=== PATIENT | male | born 1945 | race Caucasian/White ===

== ENCOUNTER 2016-12-03 01:18 | Day surgery (SDC) | payer MEDICARE ==
[~2016-12-03] VITALS: Ht 177.8 cm; Wt 160.7 kg
[2016-12-03] VITALS (14 sets, daily range): BP systolic 105–128; BP diastolic 57–90; PULSE 59–61; RESP 10–18; O2SAT 93–99
[~2016-12-03 01:18] MED LIST: AMIO200T PO; ASPI-973 PO; CARV3.122 PO; EZET10TA PO; FUR20 PO; HYDR-4003 PO; LEVO137T2 PO; LEVO750T9 PO; NYST1POW23 MC; POLY17PO6 PO; SACU1TAB PO; SERT25TA6 PO; TAMS0.4C29 PO; WARF2.5T82 PO
[2016-12-03] MEDS ORDERED: Ondansetron 2 mg/mL 2 mL Inj ONE (01:19)
[2016-12-03] MEDS ORDERED: fentaNYL-PF 50 mCg/mL 2 mL Inj ONE (01:19)
[2016-12-03] MEDS ORDERED: Phenylephrine/NS 100 mCg/mL 10 mL Syringe IVPUSH ONE (01:19)
[2016-12-03] MEDS ORDERED: EPHEDrine/NS 5 mg/mL 5 mL Syringe ONE (01:19)
[2016-12-03] MEDS ORDERED: Ketamine 10 mg/mL 20 mL Inj ONE (01:19)
[2016-12-03] MEDS ORDERED: Propofol 10,000 mCg/mL 20 mL Inj ONE (01:19)
[2016-12-03] MEDS ORDERED: Lactated Ringer's 1,000 ML IV SCH (05:00)
[2016-12-03] MEDS ORDERED: Vancomycin Inj 1,000 MG in IV Premix 1 EACH IV ONE (06:00)
[2016-12-03 06:39] LABS: EOSINOPHILS % (AUTO) 4.4 % (0-5); MONOCYTES % (AUTO) 7.9 % (4-12); Mean Corpuscular Hemoglobin 31.4 pg (27.0-35.0); Mean Corpuscular Volume 95.7 fL (81-100); NEUTROPHILS % (AUTO) 65.4 % (40-74); Platelet Count 220 bil/L (150-400)
[2016-12-03 07:05] LABS: INR 1.97 ratio
[2016-12-03] MEDS ORDERED: ACET500C49 PO (07:17)
[2016-12-03] MEDS ORDERED: ALBU18HF INH (07:17)
[2016-12-03] MEDS ORDERED: 0.9% Sodium Chloride 250 ML ONE (07:50)
[2016-12-03] MEDS ORDERED: Heparin 10,000 Unit/1,000 mL NS Premix IV ONE (07:50)
[2016-12-03] MEDS ORDERED: Bupivacaine-MPF 0.5% 30 mL Inj ONE (07:50)
[2016-12-03] MEDS ORDERED: Vancomycin 1,000 mg Inj ONE (07:51)
--- NOTE | 2016-12-03 07:51 | PCM.HPANE ---
Patient Data Surgeon Admitting Provider: Attending Provider:Isaiah Gilman MD Primary Care Physician:Yesica Randhawa MD Other Provider:Jony Gilliam Anesthesia Reason for Visit Ischemic Cardiomyopathy Ht/WT & BMI Height (Feet): 5 Height (Inches): 10.00 Weight (Kilograms): 163.300 Body Mass Index 51.54 Allergies Coded Allergies: simvastatin (Verified Allergy, Intermediate, Restlessness, 12/03/16) meloxicam (Verified Allergy, Unknown, 12/03/16) muscle aches Past Anesthesia History Anesthesia History: Denies:: Anesthesia Reactions Diabetes History Hx Diabetes?: No (pre-diabetic) MRSA MRSA: No Medications Blood Thinner: Coumadin Hypertension Medication: Yes Home Meds Incl Beta Cailin: Yes Date Beta Cailin Taken: Dec 03, 2016 Time Beta Cailin Taken: 06:00 Previous Beta Cailin Dose >24: Previous Dose <24 Hours Reported Medications Albuterol Sulfate (Ventolin HFA Inhaler)200 Puff/18 Gm Inhaler1 Puff INH Q4 PRN For Wheezing #1 INHALER Ref 0 12/03/16 Acetaminophen 500 Mg Capsule1,000 Mg PO Q4-6HRS/PRN 12/03/16 Nystatin 1 Each Powder.ea.1 Each MC BID PRN PRN 12/02/16 Polyethylene Glycol 3350 (Miralax)17 Gm Powd.pack17 Gm PO DAILY 12/02/16 Warfarin Sodium 2.5 Mg Tablet1.25 Mg PO 2xweekly 30 Days Ref 0 /TH12/02/16 Warfarin Sodium 2.5 Mg Tablet2.5 Mg PO 5xweekly 30 Days Ref 0 MON//TUE/SAT/SUN 12/02/16 Carvedilol 3.125 Mg Tablet3.125 Mg PO BID 03/13/16 Furosemide 20 Mg Tab1-3 Tab PO DAILY 03/13/16 Sacubitril/Valsartan (Entresto 24 mg-26 mg Tablet)24 Mg-26 Mg Tablet0.5 Tab PO BID 03/13/16 Amiodarone 200 Mg Bmssrd393 Mg PO HS Ref 0 01/01/16 Aspirin 81 Mg Pljtgt96 Mg PO DAILY Ref 0 12/24/15 Hydrocodone-Acetaminophen 5-325 mg 1 Each Tablet1 Tab PO Q6H PRN For Pain #60 12/24/15 Ezetimibe (Zetia)10 Mg Jxvpbk89 Mg PO DAILY 30 Days Ref 0 12/16/15 Tamsulosin ER 0.4 Mg Cap.er.24h0.4 Mg PO HS Ref 0 12/16/15 Sertraline HCl (Sertraline)25 Mg Jafvet08 Mg PO HS 30 Days Ref 0 12/16/15 Levothyroxine 137 Mcg Qthltt157 Mcg PO DAILY Ref 0 12/16/15 Discontinued Reported Medications Losartan Potassium 25 Mg Fcjomg94 Mg PO HS 03/13/16 Warfarin Sodium 5 Mg Tablet2.5 Mg PO / 30 Days Ref 0 03/13/16 Warfarin Sodium 5 Mg Tablet5 Mg PO Sun/Tue/Tue/Tue/Sat Ref 0 01/01/16 Neomycin/Polymyxin B Sulf/Hc (Bxddtqdv-Srytdzbzo-Ir Ear Soln)10 Ml Solution3 Gtt BOTH_EARS BID PRN prn 12/16/15 Discontinued Scripts Levofloxacin (Levaquin)750 Mg Uieqza552 Mg PO DAILY 10 Days Prov:Jose Francisco Vicente DO 03/16/16 Metronidazole (Flagyl)500 Mg Swuozu967 Mg PO Q8 10 Days Prov:Jose Francisco Vicente DO 03/16/16 History History of ENT Problems?: Yes HEENT History: Positive for:: Cataracts (monitored) Sinus Problem (OCCASIONALLY) Denies:: Dysphagia Denture Type: None Teeth Condition: Within Normal Limits Hx of Heart Problems?: Yes Cardiovascular History: Positive for:: Cardiac Surgery (STENT PLACED 2002, cardioversion this year) Chest Pain Congestive Heart Failure Edema Heart Murmur Hypertension Irregular Heartbeat (AFIB AFLUTTER- was cardioverted 12/2015) Valvular Heart Disease Denies:: Pacemaker Thrombophlebitis Other Cardiac History: cardiomyopathy with EF 30%-35% Other History/Comments Mild-mod Hx of Respiratory Problem?: Yes Respiratory History: Positive for:: Dyspnea (with exertion) Denies:: Asthma COPD Chest Surgery Emphysema Hemoptysis Oxygen Administration Pneumonia Pulmonary Embolism Tuberculosis Use of C-PAP Machine Hx Neurologic Problems?: Yes Neurological History: Positive for:: Dizziness Denies:: Alzheimer's Disease CVA Dementia Headaches Parkinson's Disease Seizures Hx of GI Problems?: Yes Gastrointestinal History: Positive for:: Gastroesphageal Reflux Other History/Comment Rare GERD Hx of Problems?: Yes Genitourinary History: Positive for:: Urinary Tract Infection Denies:: HX of Hemodialysis Kidney Stones HX of Peritoneal Dialysis: No Male Hx: Positive for:: Prostate Problems Denies:: Scrotal Mass Testicular Surgery Hx Musculoskeletal Problems?: Yes Musculoskeletal History: Positive for:: Back Injury (LUMBAR BACK PAIN) Denies:: Joint Replacement Musculoskeletal Trauma Other History/Comment Chronic Hip pain Hx of Psycho/Social Problems?: No Psycho Social History: Denies:: Anxiety Bipolar Disorder Hx Depression Suicide Attempt Hx Surgeries?: No (STENT PLACEMENT, TONSILLECTOMY) Hx Any Other Health Problems?: Yes Other History: Positive for:: Hospitalization (cardioversion, heart stent, surgery) Thyroid Disease (hypothyroid) Denies:: Cancer History Blood Transfusions: Positive for:: Accept Blood Products? Denies:: Blood Transfuse Reaction Blood Transfusions Hx Diabetes: No (pre-diabetic) Hx Alcohol Use: NoHx Substance Use: No Smoking Status: Current Every Day Smoker Have You Smoked inLast 12 mo: No Stop/Bang Treated for Sleep Apnea?: Yes Do You Have a CPAP Machine?: No SHANE Category 2: Yes Risk Assessment Category Category 1A: Patient has history of documented sleep apnea, and HAS NOT received any narcotic, sedative or anesthesia administration during this stay. Category 1B: Patient has history of documented sleep apnea, and HAS received any narcotic , sedative or anesthesia administration during this stay Category 2: Patient has SUSPECTED Obstructive Sleep Apnea, and HAS received any narcotic , sedative or anesthesia administration during this stay. Category 3: Patient has SUSPECTED Obstructive Sleep Apnea and HAS NOT received narcotic, sedative or anesthesia administration during this stay. Category 4: Outpatient in Procedural Areas with known sleep apnea or who screen positive for High Risk via the STOP/BANG questionnaire. Exam Exam Vital Signs Vital Signs Date Time Temp Pulse Resp B/P Pulse Ox O2 Delivery O2 Flow Rate FiO2 12/03/16 06:47 36.6 59 10 112/73 95 Room Air General Appearance: Alert, Oriented X3, Cooperative HEENT/AIRWAY: MP 2 Lungs: Crackles Heart: Normal S1, Normal S2, Murmur Additional Information Crackles at bilateral bases, improve with deep breathing Systolic murmur of Meds/Labs/Diagnostics Labs Test 12/03/16 06:20 White Blood Count 4.8th/mm3 (3.8-10.1) Red Blood Count 4.46mil/mm3 (4.40-5.80) Hemoglobin 14.0g/dL (13.8-17.2) Hematocrit 42.7% (41.0-50.0) Mean Corpuscular Volume 95.7fL (81-100) Mean Corpuscular Hemoglobin 31.4pg (27.0-35.0) Mean Corpuscular Hemoglobin Concent 32.8% (32.0-37.0) Red Cell Distribution Width 13.3% (12.3-15.4) Platelet Count 220bil/L (150-400) Neutrophils (%) (Auto) 65.4% (40-74) Lymphocytes (%) (Auto) 21.1% (14-46) Monocytes (%) (Auto) 7.9% (4-12) Eosinophils (%) (Auto) 4.4% (0-5) Basophils (%) (Auto) 1.0% (0-3) Prothrombin Time 21.4sec (8.1-12.5) Prothromb Time International Ratio 1.97ratio Sodium Level 141mEq/L (134-144) Potassium Level 4.5mEq/L (3.5-5.2) Chloride Level 107mEq/L (97-108) Carbon Dioxide Level 21mmol/L (18-29) Blood Urea Nitrogen 27mg/dL (8-27) Creatinine 0.94mg/dL (0.76-1.27) Estimat Glomerular Filtration Rate 85mL/min (>59) Glucose Level 111mg/dL (60-99) Calcium Level 8.6mg/dL (8.5-10.1) Total Bilirubin 0.5mg/dL (0.0-1.2) Aspartate Amino Transf (AST/SGOT) 18U/L (0-50) Alanine Aminotransferase (ALT/SGPT) 16U/L (0-44) Alkaline Phosphatase 57U/L (25-160) Total Protein 6.8g/dL (6.4-8.4) Albumin 3.7g/dL (3.4-5.0) Triglycerides Level 59mg/dL (0-149) Cholesterol Level 178mg/dL (100-199) LDL Cholesterol, Calculated 123.200mg/dL (0-99) VLDL Cholesterol 11.800mg/dL HDL Cholesterol 43mg/dL (>39) Cholesterol/HDL Ratio 4.14 (0.0-4.4) Thyroid Stimulating Hormone (TSH) 0.728uIU/mL (0.450-4.500) Plan Impression Patient chart reviewed, patient interviewed and anesthestic plan with risks, benefits, and alternatives discussed, and informed consent obtained. Abdias Roland MD Dec 03, 2016 07:51
[2016-12-03] MEDS: 0.9% Sodium Chloride 1,000 ML IV SCH ×2 (10:47→20:38)
[2016-12-03] MEDS ORDERED: HYDROcodone-APAP 5-325 mg Tablet PO PRN (10:50)
[2016-12-03] MEDS ORDERED: Ondansetron 2 mg/mL 2 mL Inj IVPUSH PRN ×2 (10:50→11:05)
[2016-12-03] MEDS ORDERED: EPHEDrine Sulfate 50 mg/mL Inj IVPUSH PRN (11:05)
[2016-12-03] MEDS ORDERED: Dexamethasone 4 mg/mL Inj IVPUSH PRN (11:05)
[2016-12-03] MEDS ORDERED: MetoCLOpramide 5 mg/mL 2 mL Inj IVPUSH PRN (11:05)
--- NOTE | 2016-12-03 11:08 | PCM.ANEP1 ---
Post Anesthesia PACU Phase 1 Assessment Date of Service: Dec 03, 2016 Vital Signs Vital Signs Date Time Temp Pulse Resp B/P Pulse Ox O2 Delivery O2 Flow Rate FiO2 12/03/16 06:47 36.6 59 10 112/73 95 Room Air Level of Alertness: Awake, talking Pain: Yes (ache left hip) Pain Scale Score: 6 Nausea or Vomiting: No CV Function & Hydration Stable: Yes Airway Device: Oxygen Delivery: Simple Mask Lungs: Normal Air Movement, Crackles PACU Phase 2 Assessment Complications: No Follow up Care: No Patient Instructions Provided: N/A Comments Complains of L hip pain from prolonged positioning without movement, refusing analgesics presently. Very wakeful, patent airway, VSS Abdias Roland MD Dec 03, 2016 11:08
--- NOTE | 2016-12-03 13:10 | OP ---
[address] [address] OPERATIVE REPORT PATIENT: VENTURA CONTRERAS : 1945 MR#: [id number] ADMIT: 12/03/2016 JOB ID: [id number] DATE OF SURGERY: 12/03/2016 PREOPERATIVE DIAGNOSIS(ES): 1. Severe ischemic cardiomyopathy. 2. Intraventricular conduction delay. 3. [place] Heart Association class III heart failure symptoms. 4. Sick sinus syndrome. POSTOPERATIVE DIAGNOSIS(ES): 1. Severe ischemic cardiomyopathy. 2. Intraventricular conduction delay. 3. [place] Heart [employer] class III heart failure symptoms. 4. Sick sinus syndrome. PROCEDURES PERFORMED: 1. Biventricular implantable cardioverter-defibrillator implantation with placement of a multi-lead implantable cardioverter-defibrillator generator, right ventricular implantable cardioverter-defibrillator lead, coronary sinus left ventricular lead and right atrial pacemaker lead. 2. Left upper extremity venogram. 3. Coronary sinus venogram with balloon occlusion. 4. Fluoroscopy. SURGEON: Isaiah Gilman MD, electrophysiology. GEARCASE ASSEMBLER: Heraclio Pearson. IMPLANTED DEVICES: 1. [employer] pulse generator, model [id number], serial #[id number]. 2. RA lead, [employer] 2088TC, 52 cm, serial #[id number]. 3. RV lead [employer] 7122Q, 65 cm, serial #[id number]. 4. LV lead, [employer] 1458Q, 86 cm, serial #[id number]. ANESTHESIA: Monitored anesthesia care was provided by the anesthesiology service. INDICATION: The patient is a pleasant 71-year-old man with INCOMPLETE: Dictation ends here.
--- NOTE | 2016-12-03 13:26 | NUR ---
Admission Pt arrived to [facility] [place] bed from [facility] following placement of a pacemaker. Pt is A/OX3, IV Saline locked, RA. Tele is AV paced at 91. No complains of increased pain, small spot of drainage outlined on upper chest dressing. Pt declines placement of sling as ambulation with cane is made difficult. Call light in place, frequent rounding in place.
[2016-12-03] MEDS ORDERED: Albuterol 2.5 mg/3 mL Inhalation Solution NEB PRN (14:20)
--- NOTE | 2016-12-03 14:47 | PCM.CONPHA ---
Objective Vital Signs Date Time Temp Pulse Resp B/P Pulse Ox O2 Delivery O2 Flow Rate FiO2 12/03/16 14:00 61 12/03/16 13:38 36.5 61 18 111/73 96 Room Air 12/03/16 12:58 60 16 124/85 Room Air 12/03/16 12:31 60 12 108/71 93 Room Air 12/03/16 11:58 60 15 106/69 96 Room Air 12/03/16 11:45 60 14 115/82 95 Room Air 12/03/16 11:30 60 13 113/81 94 Room Air 12/03/16 11:15 60 13 109/69 95 Room Air 12/03/16 11:08 Simple Mask 12/03/16 11:05 60 13 112/90 99 Room Air 15.00 12/03/16 11:00 60 14 105/57 99 simp. mask 15.00 12/03/16 10:55 60 12 105/81 96 simp. mask 15.00 12/03/16 06:47 36.6 59 10 112/73 95 Room Air Weight (Kilograms): 163.300 Height (Feet): 5 Height (Inches): 10.00 Test 12/03/16 06:20 White Blood Count 4.8th/mm3 (3.8-10.1) Red Blood Count 4.46mil/mm3 (4.40-5.80) Hemoglobin 14.0g/dL (13.8-17.2) Hematocrit 42.7% (41.0-50.0) Mean Corpuscular Volume 95.7fL (81-100) Mean Corpuscular Hemoglobin 31.4pg (27.0-35.0) Mean Corpuscular Hemoglobin Concent 32.8% (32.0-37.0) Red Cell Distribution Width 13.3% (12.3-15.4) Platelet Count 220bil/L (150-400) Neutrophils (%) (Auto) 65.4% (40-74) Lymphocytes (%) (Auto) 21.1% (14-46) Monocytes (%) (Auto) 7.9% (4-12) Eosinophils (%) (Auto) 4.4% (0-5) Basophils (%) (Auto) 1.0% (0-3) Prothrombin Time 21.4sec (8.1-12.5) Prothromb Time International Ratio 1.97ratio Sodium Level 141mEq/L (134-144) Potassium Level 4.5mEq/L (3.5-5.2) Chloride Level 107mEq/L (97-108) Carbon Dioxide Level 21mmol/L (18-29) Blood Urea Nitrogen 27mg/dL (8-27) Creatinine 0.94mg/dL (0.76-1.27) Estimat Glomerular Filtration Rate 85mL/min (>59) Glucose Level 111mg/dL (60-99) Calcium Level 8.6mg/dL (8.5-10.1) Total Bilirubin 0.5mg/dL (0.0-1.2) Aspartate Amino Transf (AST/SGOT) 18U/L (0-50) Alanine Aminotransferase (ALT/SGPT) 16U/L (0-44) Alkaline Phosphatase 57U/L (25-160) Total Protein 6.8g/dL (6.4-8.4) Albumin 3.7g/dL (3.4-5.0) Triglycerides Level 59mg/dL (0-149) Cholesterol Level 178mg/dL (100-199) LDL Cholesterol, Calculated 123.200mg/dL (0-99) VLDL Cholesterol 11.800mg/dL HDL Cholesterol 43mg/dL (>39) Cholesterol/HDL Ratio 4.14 (0.0-4.4) Thyroid Stimulating Hormone (TSH) 0.728uIU/mL (0.450-4.500) Assessment/Plan Assessment/Plan WARFARIN DAILY DOSING Home dose: 2.5mg 5 days per week, 1.25mg 2 days per week. Indication: A.Fib Today's INR: 1.97 Continue home dose: 2.5mg today Taylor Alcala.D Dec 03, 2016 14:46
--- NOTE | 2016-12-03 14:50 | PROCED ---
[address] [address] PROCEDURE NOTE PATIENT: VENTURA CONTRERAS : 1945 MR#: [id number] ADMIT: 12/03/2016 JOB ID: [id number] DATE OF SERVICE: 12/03/2016 SURGEON: Isaiah Gilman MD (Lawn Mower) BLUEPRINT ENGINEER: Heraclio Pearson PREOPERATIVE DIAGNOSIS(ES): 1. Severe ischemic cardiomyopathy with ejection fraction 30% to 35%. 2. [place] [employer] Class 3 heart failure symptoms. 3. Conduction system delay with QRS duration 148 msec. 4. Symptomatic sinus bradycardia. POSTOPERATIVE DIAGNOSIS(ES): 1. Severe ischemic cardiomyopathy with ejection fraction 30% to 35%. 2. [place] Heart [employer] Class 3 heart failure symptoms. 3. Conduction system delay with QRS duration 148 msec. 4. Symptomatic sinus bradycardia. PROCEDURE PERFORMED: 1. Biventricular implantable cardioverter-defibrillator implantation. 2. Placement of multilead ICD generator, RV ICD lead, coronary sinus left ventricular lead, right atrial pacemaker lead. 3. Coronary sinus venogram. 4. Left upper extremity venogram. 5. Fluoroscopy. IMPLANTED DEVICES: 1. [employer] pulse generator, model [id number], serial #[id number]. 2. RA lead, [employer] 2088TC, 52 cm, serial #[id number]. 3. RV lead [employer] 7122Q, 65 cm, serial #[id number]. 4. LV lead, [employer] 1458Q, 86 cm, serial #[id number]. ANESTHESIA: Monitored anesthesia care was undertaken for this case. INDICATION: This patient is a pleasant, 71-year-old man with ischemic heart disease, severely diminished LV function, advanced heart failure symptomology, conduction disease with a wide QRS duration. After discussion of risks and benefits of BiVICD implantation, he opted to proceed. PROCEDURE DESCRIPTION: Following informed signed consent, the patient was taken to the operating room in the fasting, nonsedated state, where he was prepped and draped in the usual sterile fashion. The left infraclavicular region was infiltrated with 40 cc of a 50/50 mixture of bupivacaine and lidocaine. Once adequate anesthesia had been achieved, a 3 cm transverse incision was performed 2 cm below the clavicle, and dissection was carried to the pectoralis fascia. A pocket was then fashioned using a combination of electrocautery and blunt dissection. Once adequate hemostasis had been achieved, attempts to access the left axillary vein with a micropuncture needle were unsuccessful. A left upper extremity venogram was performed. Under venographic guidance, the vessel was cannulated three times with a micropuncture needle to deploy three 0.035, 3 mm J guidewires. Over the first of these, a 7-Jamaican tear-away sheath was advanced. Once the guidewire was removed, an active fixation single coil VF4 ICD lead was advanced into the RV outflow tract and ultimately the RV apex. The lead was affixed in position using associated active fixation screw, connected to the external analyzer and demonstrated appropriately sensed R waves, impedance and capture threshold. It was checked at 10 V and there was no evidence of diaphragmatic stimulation. Attention was now paid to placement of the coronary sinus lead over another of the previously deployed J guidewires. A 9-Jamaican tear-away sheath was advanced. Once the guidewire was removed, a [employer] delivery sheath was delivered over a Super 6 curved EP catheter which was then used to engage the coronary sinus. The sheath was advanced into the sinus and the coronary sinus venograms were performed both with and without balloon occlusion catheter delineating a modestly sized branch at the 4 o'clock position off of the mitral annulus. This was chosen as our position of choice. A quadripolar CS lead was brought to the field and advanced into the branch of choice over a Whisper wire. The lead was connected to external analyzer and demonstrated appropriately sensed R waves, impedance, capture threshold was checked to 10 V and there was no evidence of diaphragmatic stimulation. The Whisper wire was removed and in its stead was placed a finishing stylet. The short 9-Jamaican sheath was slit loose. The long sheath was maintained in place for lead stability while we worked on the atrial lead. We then addressed atrial lead over the last of the previously deployed J guidewires. A 6-Jamaican tear-away sheath was advanced. Once the guidewire was removed, an active fixation was advanced to the right atrial appendage. It was affixed in position using associated active fixation screw. It was connected to the external analyzer and demonstrated appropriate sensed P waves, impedance, capture threshold and was checked at 10 V. There was no evidence of diaphragmatic stimulation. Finally the long sheath was slit, maintaining the position of the CS lead. Once the position and redundancy of all three leads was confirmed on multiple views, the leads were anchored to the prepectoralis fascia using their associated anchoring sleeves and 0 Ethibond sutures. The pocket was copiously irrigated with antibiotic solution. The leads were connected to the generator. The generator was placed in the pocket. It was affixed to the floor of the pocket using 1-0 Ti-Cron suture. The incision was then closed with running layers of absorbable suture. The wound was dressed with skin adhesive and a small dressing. At the end of procedure, the needle, sponge, and instrument counts were all correct. COMPLICATIONS: None. ESTIMATED BLOOD LOSS: Negligible. DEVICE MEASURED DATA: 1. Right atrial lead 2.8 mV, 560 ohms, 1.75 V at 0.5 msec. 2. RV lead 7.4 mV, 540 ohms, 1 V at 0.5 msec. 3. LV lead 530 ohms, 0.75 V at 0.5 msec (T4 to RV coil). FINAL PROGRAM PARAMETERS: 1. DDDR 60-130 beats per minute. 2. VF zone at 187 beats per minute with ATP followed by shocks. 3. VT 2 zone at 171 beats per minute with three rounds of ATP followed by shocks. 4. VT monitor zone 150 beats per minute. IMPRESSION: Successful biventricular implantable cardioverter-defibrillator implantation. PLAN: 1. Stat portable chest x-ray. 2. PA and lateral chest x-ray in morning. 3. Device interrogation in the morning. 4. IV Ancef through tomorrow. 5. Keflex x7 days. 6. Wound check in one week. ATTENDING STATEMENT: Isaiah Gilman MD, Electrophysiology attending, was present for and supervised/performed all aspects of this procedure.
[2016-12-03] MEDS: CeFAZolin Inj 1 GM in IV Premix 1 EACH IV SCH (16:54)
[2016-12-03] MEDS: ENTRESTO PO SCH (20:37)
[2016-12-04] VITALS (7 sets, daily range): BP systolic 106–117; BP diastolic 71–72; PULSE 60–74; RESP 16–18; O2SAT 93–95
[2016-12-04] MEDS: CeFAZolin Inj 1 GM in IV Premix 1 EACH IV SCH (00:13)
--- NOTE | 2016-12-04 03:52 | NUR ---
NOC shift note Patient has reported a "dull ache" at pacer site, 1/10 on pain scale. PRN Tylenol administered. Dressing remained unchanged- slight dried drainage circled when patient arrived yesterday afternoon. No swelling/bruising at site. Vital signs stable. Antibiotic administered as ordered. Telemetry reported 100% paced. Patient has remained alert and oriented, cooperative with care. Patient declined wearing arm sling, but was observed being careful to not lift arm. Call light within reach, intentional rounding in place.
[2016-12-04] MEDS: 0.9% Sodium Chloride 1,000 ML IV SCH (06:47)
[2016-12-04] MEDS: ENTRESTO PO SCH (08:05)
[2016-12-04] MEDS ORDERED: Polyethylene Glycol (PEG) 17 Gm Powder PO SCH (08:30)
--- NOTE | 2016-12-04 09:38 | DRSVH ---
PROCEDURE: X-RAY CHEST, TWO VIEWS ([id number]) INDICATIONS: For new lead placement TECHNIQUE: 2 views of the chest were acquired. COMPARISON: [facility], CR, XR CHEST 1VW (PORTABLE), 12/03/2016, 11:00. FINDINGS: Surgical changes and devices: Pacemaker. Lungs and pleura: No pleural effusions or pneumothorax. Lungs are clear. Mediastinum: Mediastinal contours are normal. Heart size is normal. Bones and chest wall: No suspicious bony abnormalities. Soft tissues appear unremarkable. IMPRESSION: No acute pulmonary process. Dictated by: Rohini Piña M.D. on 12/04/2016 at 9:36 Approved by: Rohini Piña M.D. on 12/04/2016 at 9:36
--- NOTE | 2016-12-04 09:51 | DRSVH ---
PROCEDURE: X-RAY CHEST ONE VIEW, PORTABLE ([id number]) INDICATIONS: For new leads placed TECHNIQUE: One view of the chest was acquired. COMPARISON: [facility], CR, XR CHEST 1VW (PORTABLE), 03/13/2016, 21:36. FINDINGS: Surgical changes and devices: Left cardiac pacer present in expected position. Lungs and pleura: No pleural effusions or pneumothorax. Lungs are clear. Mediastinum: Mediastinal contours appear normal. Heart size is enlarged. Bones and chest wall: No suspicious bony lesions. Overlying soft tissues appear unremarkable. IMPRESSION: No immediate complications status post cardiac pacemaker placement. Dictated by: Fer FRENCH Interpreted: Rohini Piña MD on 12/03/2016 at 12:34 Approved by: Rohini Piña M.D. on 12/04/2016 at 9:50
--- NOTE | 2016-12-04 10:02 | PCM.DIMED ---
Discharge Instructions Date of Service Dec 04, 2016 Dates of Hospitalization Discharge Diagnosis Discharge Diagnosis Ischemic Cardiomyopathy Paroxysmal Atrial Fibrillation Hypertension Diet Discharge Diet: Low fat, Low Sodium, Heart Healthy Activity Discharge Activity: Other (Do not extend left elbow high above shoulder for one month. Do not lift, push or pull more than 10 lbs with the left arm for one month. ) Call your provider Call your provider for: Fever or Chills, Bleeding, Excessive diarrhea Patient Instructions Follow-up in: 1 week Mid-level Provider (F9): Louis Villatoro PA-C Follow-up with Mid-level in: 6 weeks Louis Villatoro PA-C Dec 04, 2016 10:02
[2016-12-04] MEDS ORDERED: CEPH500C PO (10:19)
--- NOTE | 2016-12-04 11:57 | NUR ---
Discharge Patient discharge to home with all belongings at 1152. Explained to patient new medication (cephalexin), when next medications are due and discharge instructions. Patient verbalized understanding. Dc'd IV intact x2. Dc'd telemetry. Vitals stable. Patient left floor via wheelchair accompanied by family and PAINTINGS CONSERVATOR with no signs of distress.
--- NOTE | 2016-12-04 13:34 | DIS ---
[address] [address] DISCHARGE SUMMARY PATIENT: VENTURA CONTRERAS : 1945 MR#: [id number] ADMIT: 12/03/2016 JOB ID: [id number] DIS: 12/04/2016 REASON FOR ADMISSION: Biventricular defibrillator implant. CHIEF COMPLAINT: Fatigue and exertional dyspnea. BRIEF HISTORY: The patient is a pleasant 71-year-old man with severe ischemic cardiomyopathy and an LV ejection fraction of 30% to 35%. He has also had paroxysmal atrial fibrillation and is treated with amiodarone and has been cardioverted. His conduction system shows a left anterior fascicular block and a QRS duration of 148 msec. He was referred to Dr. Gilman for consideration of his sudden cardiac arrest risk assessment. The conclusion was to recommend a biventricular ICD for cardiac resynchronization therapy and prevention of sudden cardiac arrest. COURSE IN HOSPITAL: The patient was admitted to the [facility] and taken to the catheter finisher and inspector, where he received the three lead defibrillator system without incident. He received general anesthesia from the anesthesiologist during the procedure. He was awakened from anesthesia and taken back to the [facility] for further recovery before being transferred to the third floor for overnight observation and telemetry monitoring. He did well overnight and in the morning felt well for discharge home. He was not short of breath or having chest pain or lightheadedness. Device evaluation showed good capture and sensing thresholds for all three leads and he had no ventricular tachycardia overnight. Device site is closed and dry. There is no hematoma. Chest x-ray shows good lead positions and no pneumothorax. DISPOSITION: The patient was discharged home in good condition with a followup appointment at the [facility] Cardiology office in one week. He was asked not to extend his left elbow high above the shoulder for one month and not lift push or pull more than 10 pounds with the left arm for one month. He will follow his diabetic diet and heart function diets and take medications as prescribed. DISCHARGE MEDICATIONS: 1. Cephalexin 500 mg b.i.d. for one week. 2. Acetaminophen 1000 mg q 4-6 hours p.r.n. pain. 3. Albuterol inhaler one puff q.4 hours p.r.n. wheezing. 4. Amiodarone 200 mg daily. 5. Aspirin 81 mg daily. 6. Carvedilol 3.125 mg b.i.d. 7. Zetia 10 mg daily. 8. Furosemide 20-60 mg p.o. daily as needed for fluid retention. 9. Hydrocodone/acetaminophen 5/325 mg one tablet q.6 hours p.r.n. pain. 10. Levothyroxine 137 mcg daily. 11. Nystatin one each b.i.d. 12. Polyethylene glycol 17 g daily. 13. Entresto 24-26 mg tablet a half tablet b.i.d. 14. Sertraline 25 mg q.h.s. 15. Tamsulosin ER 0.4 mg q.h.s. 16. Warfarin 2.5 mg 5 days per week and warfarin 1.25 mg 2 days per week, or as directed by his Anticoagulation Clinic. FINAL DIAGNOSES: 1. Ischemic cardiomyopathy. 2. Paroxysmal atrial fibrillation. 3. Hypertension.
== END 2016-12-04 11:53 | disposition home or self-care (01) ==
LOC: SOUO 01:18 → MPC 13:20 → SOUO 12-04 11:53
PROVIDERS: ATTEND Internal Medicine Cardiovascular Disease
DX: I25.5 Ischemic cardiomyopathy (principal); Z00.6 Encounter for examination for normal comparison and control in clinical research program; I44.4 Left anterior fascicular block; I45.89 Other specified conduction disorders; I50.22 Chronic systolic (congestive) heart failure; I49.5 Sick sinus syndrome; I10 Essential (primary) hypertension; I48.0 Paroxysmal atrial fibrillation; I25.10 Atherosclerotic heart disease of native coronary artery without angina pectoris; I25.2 Old myocardial infarction; E66.01 Morbid (severe) obesity due to excess calories; Z68.42 Body mass index [BMI] 45.0-49.9, adult; Z79.899 Other long term (current) drug therapy; N40.0 Benign prostatic hyperplasia without lower urinary tract symptoms; G47.33 Obstructive sleep apnea (adult) (pediatric); E78.2 Mixed hyperlipidemia; Z95.5 Presence of coronary angioplasty implant and graft; Z79.01 Long term (current) use of anticoagulants
CPT/HCPCS: 33225; 33249; 36415; 71010; 71020; 80053; 80061; 84153; 84443; 85025; 85610; 93005; 94799; C1769; C1777; C1882; C1892; C1898; C1900; J0690; J1644; J2250; J2370; J2405; J2704; J3010; J3370; J7050; Q9967